=== PATIENT | male | born 1985 | race Caucasian/White ===

== ENCOUNTER 2020-12-12 12:19 | Emergency (ER) | payer SELFPAY ==
[2020-12-12 12:26] VITALS: BP 143/82; PULSE 121; TEMP 97.9; BMI 35.2
[2020-12-12] MEDS ORDERED: IBUPROFEN 600 MG TABLET (FP) PO ONE ×2 (13:09→13:15)
[2020-12-12] MEDS ORDERED: DIPHTH,PERTUSS(ACELL),TET 0.5 ML DISP.SYRIN IM ONE ×2 (13:09→13:16)
== END 2020-12-12 14:27 | disposition home or self-care (01) ==
LOC: JERFT 12:19
PROC: 0HQ0XZZ Repair Scalp Skin, External Approach (ICD-10-PCS; principal; 2020-12-12)
PROC: 3E0234Z Introduction of Serum, Toxoid and Vaccine into Muscle, Percutaneous Approach (ICD-10-PCS; 2020-12-12)
DX: S01.81XA Laceration without foreign body of other part of head, initial encounter (principal)
CPT/HCPCS: 90715; 99284-25

== ENCOUNTER 2020-12-20 15:22 | Emergency (ER) | payer SELFPAY ==
[2020-12-20 15:29] VITALS: BP 119/74; PULSE 80; TEMP 97; BMI 35.2
== END 2020-12-20 16:26 | disposition home or self-care (01) ==
LOC: JER 15:22 → JERFT 15:22
DX: Z48.02 Encounter for removal of sutures (principal)
CPT/HCPCS: 99281-25